=== PATIENT | male | born 1990 | race African-American/Black ===

== ENCOUNTER 2016-11-26 20:36 | Emergency (ER) | payer BC ==
[~2016-11-26] VITALS: Ht 167.6 cm; Wt 81.0 kg
[2016-11-26] MEDS ORDERED: ONDANSETRON HCL 4MG/2ML VIAL IV STA (23:25)
[2016-11-26] MEDS ORDERED: SODIUM CHLORIDE 0.9% 1,000 ML IV ONE (23:25)
[2016-11-26] MEDS ORDERED: FAMOTIDINE 20MG/2ML VIAL IV STA (23:25)
[2016-11-26] MEDS ORDERED: MORPHINE SULFATE 4 MG/ML CPJ (NOT FOR IM USE) IV STA (23:25)
[2016-11-26 23:40] VITALS: BP 110/64
[2016-11-26 23:43] LABS: HEMATOCRIT. 49.1 % (42.0-52.0); HEMOGLOBIN. 16.9 g/dL (14.0-18.0); MEAN CORPUSCULAR HEMOGLOBIN 30.9 pg (28.0-32.0); MEAN CORPUSCULAR VOLUME 89.8 fL (80.0-94.0); MEAN PLATELET VOLUME 9.8 fl (7.4-10.4); PLATELET 176 x1000/uL (130-400); RED BLOOD CELL COUNT 5.47 mill/uL (4.7-6.1); RED CELL DISTRIBUTION WIDTH 13.5 % (11.6-14.6)
[2016-11-26] MEDS ORDERED: MORPHINE SULFATE 10 MG/ML CPJ IV NR (23:45)
[2016-11-26 23:55] LABS: CARBON DIOXIDE 27 mEq/L (21-32); CHLORIDE 105 mEq/L (98-107); ETHANOL BLOOD < 10 mg/dL
[2016-11-27 01:03] LABS: PLATELET ESTIMATE NORMAL
== END 2016-11-27 06:30 | disposition home or self-care (01) ==
LOC: ER 20:36
DX: R11.2 Nausea with vomiting, unspecified (principal); R10.84 Generalized abdominal pain
CPT/HCPCS: 36415; 76705; 80053; 83605; 83690; 85025; 96361; 96374; 96375; 99285; G0482; J2270; J2405; J3490; J7030; Z7610

== ENCOUNTER 2021-02-28 12:31 | Emergency (ER) | payer BC, OTHER ==
[~2021-02-28] VITALS: Ht 167.6 cm; Wt 85.0 kg
[2021-02-28 12:34] VITALS: BP 120/89
[2021-02-28] MEDS ORDERED: ONDANSETRON HCL 4MG/2ML INJ IV ONE (13:45)
[2021-02-28] MEDS ORDERED: SODIUM CHLORIDE 0.9% 1,000 ML IV ONE (13:45)
[2021-02-28 14:16] LABS: BASOPHILS % 0.6 % (0.0-2.0); EOSINOPHILS % 0.4 % (0.0-5.0); HEMATOCRIT. 48.6 % (42.0-52.0); HEMOGLOBIN. 16.4 g/dL (14.0-18.0); LYMPHOCYTES % 47.8 % (20.0-50.0); MEAN CORPUSCULAR HEMOGLOBIN 30.8 pg (28.0-32.0); MEAN CORPUSCULAR VOLUME 91.4 fL (80.0-94.0); MEAN PLATELET VOLUME 9.9 fl (7.4-10.4); MONOCYTES % 6.9 % (2.0-8.0); NEUTROPHILS % 44.3 % (40.0-76.0); PLATELET 155 x1000/uL (130-400); RED BLOOD CELL COUNT 5.31 mill/uL (4.7-6.1); RED CELL DISTRIBUTION WIDTH 12.8 % (11.6-14.6)
[2021-02-28 14:22] LABS: CHLORIDE 106 mEq/L (98-107)
[2021-02-28] MEDS ORDERED: ONDA4TAB5 MT ×2 (18:09→18:43)
== END 2021-02-28 18:24 | disposition home or self-care (01) ==
LOC: ER 12:31
DX: R11.2 Nausea with vomiting, unspecified (principal); U07.1 COVID-19; I49.9 Cardiac arrhythmia, unspecified
CPT/HCPCS: 36415; 71046; 80053; 83690; 84484; 85025; 93005; 96361; 96374; 99285; J2405; J7030

== ENCOUNTER 2021-07-10 16:01 | Emergency (ER) | payer OTHER ==
[~2021-07-10] VITALS: Ht 167.6 cm; Wt 75.0 kg
[~2021-07-10 16:01] MED LIST: ONDA4TAB5 MT
[2021-07-10] MEDS ORDERED: KETOROLAC 30MG/ML VIAL IV STA (16:31)
[2021-07-10] MEDS ORDERED: SODIUM CHLORIDE 0.9% 1,000 ML IV ONE ×2 (16:45→17:15)
[2021-07-10] MEDS ORDERED: FAMOTIDINE 20MG/2ML VIAL IV ONE (16:45)
[2021-07-10] MEDS ORDERED: ONDANSETRON HCL 4MG/2ML INJ IV ONE (16:45)
[2021-07-10] MEDS ORDERED: ONDANSETRON HCL 4MG/2ML INJ IV STA (17:09)
[2021-07-10] MEDS ORDERED: MORPHINE SULFATE 4 MG/ML CPJ (NOT FOR IM USE) IV STA (17:09)
[2021-07-10 17:34] VITALS: BP 133/81
[2021-07-10 17:46] LABS: BASOPHILS % 0.2 % (0.0-2.0); EOSINOPHILS % 0.4 % (0.0-5.0); HEMATOCRIT. 51.2 % (42.0-52.0); HEMOGLOBIN. 17.5 g/dL (14.0-18.0); LYMPHOCYTES % 9.9 % (20.0-50.0); MEAN CORPUSCULAR HEMOGLOBIN 31.8 pg (28.0-32.0); MEAN CORPUSCULAR VOLUME 93.1 fL (80.0-94.0); MEAN PLATELET VOLUME 9.6 fl (7.4-10.4); MONOCYTES % 5.4 % (2.0-8.0); NEUTROPHILS % 84.1 % (40.0-76.0); PLATELET 202 x1000/uL (130-400); RED CELL DISTRIBUTION WIDTH 13.4 % (11.6-14.6)
[2021-07-10 18:03] LABS: CHLORIDE 106 mEq/L (98-107)
[2021-07-10] MEDS ORDERED: HALOPERIDOL LACTATE 5MG/ML VIAL IM ONE (18:15)
[2021-07-10] MEDS ORDERED: MAGNESIUM/ALUMINUM HYDROXIDE/SIMETHICONE 30ML UDC PO ONE (18:30)
[2021-07-10] MEDS ORDERED: DIPHENHYDRAMINE 50MG/ML VIAL IV ONE (18:30)
== END 2021-07-10 19:14 | disposition left against medical advice (07) ==
LOC: ER 16:01
DX: R10.84 Generalized abdominal pain (principal); F12.10 Cannabis abuse, uncomplicated
CPT/HCPCS: 36415; 80053; 83690; 85025; 93005; 96361; 96372; 96374; 96375; 99284; J1200; J1630; J1885; J2270; J2405; J3490; J7030